=== PATIENT | female | born 2000 | race Caucasian/White ===

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

== ENCOUNTER 2022-02-10 00:33 | Inpatient (IN) | payer BC ==
[2022-02-10] MEDS ORDERED: Terbutaline 1 MG/ML SDV SUBCUT PRN (00:53)
[2022-02-10] MEDS ORDERED: Tranexamic Acid 1,000 MG in Sodium Chloride 0.9% 100 ML IV PRN (00:53)
[2022-02-10] MEDS ORDERED: Carboprost Tromethamine 250 MCG/1 ML Amp IM PRN (00:53)
[2022-02-10] MEDS ORDERED: Sodium Chloride 0.9% 10 ML Syringe FLUSH PRN (00:53)
[2022-02-10] MEDS ORDERED: Water For Irrigation,Sterile 1,000 ML Container IRR PRN (00:53)
[2022-02-10] MEDS ORDERED: Sodium Chloride 0.9% 2.5 ML Syringe FLUSH PRN (00:53)
[2022-02-10] MEDS ORDERED: Misoprostol 25 MCG (1/4 of 100 MCG) Tab VAG PRN (00:53)
[2022-02-10] MEDS ORDERED: Methylergonovine 0.2 MG/1 ML Amp IM PRN (00:53)
[2022-02-10] MEDS ORDERED: Sodium Chloride 0.9% 20 ML SDV IV PRN (00:53)
[2022-02-10] MEDS ORDERED: Misoprostol 200 MCG Tab PO PRN (00:53)
[2022-02-10] MEDS ORDERED: Lidocaine 1% 50 ML MDV INJECT PRN (00:53)
[2022-02-10] MEDS ORDERED: Butorphanol 1 MG/ML SDV IVPUSH PRN (00:53)
[2022-02-10] MEDS ORDERED: Ondansetron 4 MG/2 ML SDV IVPUSH PRN (00:53)
[2022-02-10] MEDS ORDERED: Oxytocin/0.9 % Sodium Chloride 30 UNIT/500 ML BAG IV SCH ×2 (01:00)
[2022-02-10] MEDS: Lactated Ringers 1,000 ML IV SCH ×4 (01:46→19:01)
[2022-02-10] MEDS: Misoprostol 25 MCG (1/4 of 100 MCG) Tab PO SCH ×3 (02:04→10:38)
[2022-02-10] MEDS: Misoprostol 25 MCG (1/4 of 100 MCG) Tab VAG PRN ×2 (06:10→10:39)
[2022-02-10] MEDS ORDERED: Ropivacaine 100 ML ONE (13:23)
[2022-02-10] MEDS ORDERED: ePHEDrine 50 MG/ML SDV IVPUSH PRN (14:33)
[2022-02-10] MEDS: Ropivacaine 200 MG in Premix Bag 1 BAG EPIDUR SCH (22:04)
[2022-02-11] MEDS: Lactated Ringers 1,000 ML IV SCH ×3 (03:07→16:39)
[2022-02-11] MEDS: Ropivacaine 200 MG in Premix Bag 1 BAG EPIDUR SCH (04:18)
[2022-02-11] MEDS ORDERED: ceFAZolin 1 GM Vial ONE ×2 (04:40→05:50)
[2022-02-11] MEDS ORDERED: Water For Injection, Sterile 20 ML ONE ×3 (04:40→05:50)
[2022-02-11] MEDS ORDERED: Lidocaine 2% with EPINEPHrine 1:200,000 20 ML SDV ONE (04:40)
[2022-02-11] MEDS ORDERED: Ondansetron 4 MG/2 ML SDV ONE ×2 (04:43→05:50)
[2022-02-11] MEDS ORDERED: Famotidine 20 MG/2 ML SDV IVPUSH ONE (04:54)
[2022-02-11] MEDS ORDERED: Citric Acid/Sodium Citrate Solution 30 ML Cup PO ONE (04:56)
[2022-02-11] MEDS ORDERED: Azithromycin 500 MG in Sodium Chloride 0.9% 250 ML IV ONE (05:03)
[2022-02-11] MEDS ORDERED: Azithromycin 500 MG Vial ONE (05:16)
[2022-02-11] MEDS ORDERED: Sodium Chloride 0.9% 250 ML ONE (05:17)
[2022-02-11] MEDS ORDERED: Ketorolac 30 MG/ML SDV ONE ×2 (05:18→05:50)
[2022-02-11] MEDS ORDERED: Oxytocin 10 Units/1 ML SDV ONE ×2 (05:47→05:50)
[2022-02-11] MEDS ORDERED: Dexamethasone 4 MG/ML 5 ML MDV ONE (05:50)
[2022-02-11] MEDS ORDERED: Morphine PF 10 MG/10 ML SDV ONE (06:03)
[2022-02-11] MEDS ORDERED: diphenhydrAMINE 50 MG/ML SDV ONE (06:06)
[2022-02-11] MEDS ORDERED: Ketamine HCL/NACL, ISO-OSM 50 MG/5 ML Syringe ONE (06:06)
[2022-02-11] MEDS ORDERED: Bisacodyl 10 MG Supp RECTAL PRN (06:24)
[2022-02-11] MEDS ORDERED: Ondansetron 4 MG/2 ML SDV IVPUSH PRN ×2 (06:24→10:43)
[2022-02-11] MEDS ORDERED: Acetaminophen/oxyCODONE 325-5 MG Tab PO PRN ×2 (06:24→10:43)
[2022-02-11] MEDS ORDERED: Misoprostol 200 MCG Tab RECTAL PRN (06:24)
[2022-02-11] MEDS ORDERED: Methylergonovine 0.2 MG/1 ML Amp IM PRN (06:24)
[2022-02-11] MEDS ORDERED: Oxytocin 10 Units/1 ML SDV IM PRN (06:24)
[2022-02-11] MEDS ORDERED: Tranexamic Acid 1,000 MG in Sodium Chloride 0.9% 100 ML IV PRN (06:24)
[2022-02-11] MEDS ORDERED: Lanolin 100% Cream 7 GM Tube TOP PRN (06:24)
[2022-02-11] MEDS ORDERED: diphenhydrAMINE 50 MG/ML SDV IVPUSH PRN ×2 (06:24→10:43)
[2022-02-11] MEDS ORDERED: Bupivacaine 0.25% 30 ML SDV ONE (06:50)
[2022-02-11] MEDS ORDERED: Naloxone 0.4 MG/ML SDV IVPUSH PRN (10:43)
[2022-02-11] MEDS ORDERED: Promethazine 25 MG/ML SDV IM ONE (10:44)
[2022-02-11] MEDS: Ketorolac 30 MG/ML SDV IVPUSH SCH ×3 (12:47→23:54)
[2022-02-11] MEDS: Docusate Sodium 100 MG Cap PO SCH ×2 (23:25→23:54)
[2022-02-12] MEDS: Ketorolac 30 MG/ML SDV IVPUSH SCH ×2 (06:55→12:24)
[2022-02-12] MEDS: Misoprostol 25 MCG (1/4 of 100 MCG) Tab PO SCH (09:24)
[2022-02-12] MEDS: Docusate Sodium 100 MG Cap PO SCH ×2 (09:24→21:28)
[2022-02-12] MEDS ORDERED: Ibuprofen 800 MG Tab PO PRN (18:00)
[2022-02-12] MEDS: Acetaminophen/oxyCODONE 325-5 MG Tab PO PRN (21:29)
[2022-02-13] MEDS: Acetaminophen/oxyCODONE 325-5 MG Tab PO PRN (03:00)
[2022-02-13] MEDS: Docusate Sodium 100 MG Cap PO SCH (07:59)
== END 2022-02-13 12:25 | disposition home or self-care (01) | DRG 540 ==
LOC: MW.OBCHECK 00:33 → MW.OB 00:37 → MW.OBCHECK 00:53 → MW.OB 00:53 → OBSVTOIN 02-11 05:51 → MW.OB 02-11 12:55
PROVIDERS: ADMIT Obstetrics & Gynecology; ATTEND Obstetrics & Gynecology Obstetrics
PROC: 10D00Z1 Extraction of Products of Conception, Low, Open Approach (ICD-10-PCS; principal; 2022-02-11)
DX: O61.0 Failed medical induction of labor (principal); O34.211 Maternal care for low transverse scar from previous cesarean delivery; Z3A.39 39 weeks gestation of pregnancy; Z37.0 Single live birth; O99.52 Diseases of the respiratory system complicating childbirth; Z20.822 Contact with and (suspected) exposure to COVID-19; J45.909 Unspecified asthma, uncomplicated
CPT/HCPCS: 36415; 51702; 59025; 82947; 85014; 85018; 85027; 86592; 86850; 86900; 86901; A9270-GY; J0131; J0456; J0595; J0690; J1100; J1200; J1885; J2274; J2405; J2590; J2795; J3490; J7050; J7120; U0002

== ENCOUNTER 2022-03-03 22:22 | Emergency (ER) | payer BC ==
[2022-03-03] MEDS ORDERED: Lactated Ringers 1,000 ML IV STA ×2 (23:03→23:20)
[2022-03-03] MEDS ORDERED: Ketorolac 30 MG/ML SDV IVPUSH ONE (23:08)
[2022-03-03 23:16] LABS: CARBON DIOXIDE,CO2 23.3 mmol/L (21.0-32.0); POTASSIUM,K 3.4 mmol/L (3.5-5.1)
[2022-03-03] MEDS ORDERED: Potassium Chloride 10% 20 MEQ/15 ML Soln 30 ML UD Cup PO ONE (23:20)
[2022-03-03] MEDS ORDERED: Magnesium Sulfate/Water 2 GM in Premix Bag 1 BAG IV ONE (23:20)
[2022-03-03] MEDS ORDERED: Magnesium Oxide 400 MG Tab PO ONE (23:21)
[2022-03-04] MEDS ORDERED: Lactated Ringers 1,000 ML IV STA (01:32)
[2022-03-04] MEDS ORDERED: Iopamidol 755 MG/ML 500 ML Multipack Bottle IVPUSH STA (01:36)
[2022-03-04] MEDS ORDERED: Cephalexin 500 MG Cap PO STA (02:16)
[2022-03-04] MEDS ORDERED: Azithromycin 250 MG Tab PO STA (02:16)
== END 2022-03-04 02:41 | disposition home or self-care (01) ==
LOC: MW.ED 22:22
DX: N39.0 Urinary tract infection, site not specified (principal); J18.9 Pneumonia, unspecified organism; E86.0 Dehydration; Z20.822 Contact with and (suspected) exposure to COVID-19
CPT/HCPCS: 36415; 71045; 71045-26; 71275; 71275-26; 80053; 81001; 83605; 83735; 84484; 85025; 85379; 85610; 87040; 93005; 96374; 99285-25; A9270-GY; J1885; J7120; Q9967; U0002

== ENCOUNTER 2022-06-10 03:00 | Emergency (ER) | payer SELFPAY ==
[2022-06-10] MEDS ORDERED: Sodium Chloride 0.9% 2.5 ML Syringe FLUSH PRN (03:25)
[2022-06-10] MEDS ORDERED: Sodium Chloride 0.9% 10 ML Syringe FLUSH PRN (03:25)
[2022-06-10] MEDS ORDERED: Alum Hydro/Mag Hydro/Simeth XS 15 ML, Lidocaine 2% 5 ML PO ONE ×2 (03:25)
[2022-06-10] MEDS ORDERED: Morphine 4 MG/ML VIAL IVPUSH ONE (03:42)
[2022-06-10] MEDS ORDERED: Ondansetron 4 MG/2 ML SDV IVPUSH ONE (03:42)
[2022-06-10 04:13] LABS: CARBON DIOXIDE,CO2 26.1 mmol/L (21.0-32.0); POTASSIUM,K 3.4 mmol/L (3.5-5.1)
[2022-06-10] MEDS ORDERED: Ketorolac 30 MG/ML SDV IVPUSH ONE (04:16)
[2022-06-10] MEDS ORDERED: Famotidine 20 MG/2 ML SDV IVPUSH ONE (04:20)
== END 2022-06-10 04:50 | disposition home or self-care (01) ==
LOC: MW.ED 03:00
DX: K21.9 Gastro-esophageal reflux disease without esophagitis (principal); Z79.899 Other long term (current) drug therapy
CPT/HCPCS: 36415; 71045; 80053; 83690; 84484; 85025; 85379; 93005; 96374; 96375; 99285; A9270; J1885; J2270; J2405; J3490; 93010; 99284

== ENCOUNTER 2023-07-03 16:21 | Emergency (ER) | payer SELFPAY | END 2023-07-03 17:30 | disposition left against medical advice (07) | LOC: MW.ED 16:21 | DX: Z53.21 Procedure and treatment not carried out due to patient leaving prior to being seen by health care provider (principal) ==

== ENCOUNTER 2023-07-04 13:53 | Emergency (ER) | payer SELFPAY | END 2023-07-04 15:37 | disposition home or self-care (01) | LOC: MW.ED 13:53 | DX: S05.02XA Injury of conjunctiva and corneal abrasion without foreign body, left eye, initial encounter (principal); F17.210 Nicotine dependence, cigarettes, uncomplicated; X58.XXXA Exposure to other specified factors, initial encounter | CPT/HCPCS: 99282; 99283 ==

== ENCOUNTER 2023-07-08 19:19 | Emergency (ER) | payer SELFPAY ==
[2023-07-08] MEDS ORDERED: Sodium Chloride 0.9% 2.5 ML Syringe FLUSH PRN (20:46)
[2023-07-08] MEDS ORDERED: Sodium Chloride 0.9% 1,000 ML IV ONE (20:46)
[2023-07-08] MEDS ORDERED: Sodium Chloride 0.9% 10 ML Syringe FLUSH PRN (20:46)
[2023-07-08 21:24] LABS: BASOPHILS PERCENT AUTO 0.3 % (0.0-1.5); EOSINOPHILS ABSOLUTE AUTO 0.2 K/uL (0.0-0.7); EOSINOPHILS PERCENT AUTO 1.9 % (0.0-7.0); HEMATOCRIT 40.8 % (36.0-46.0); HEMOGLOBIN 13.9 g/dL (12.0-16.0); LYMPHOCYTES ABSOLUTE AUTO 2.7 K/uL (0.6-2.4); LYMPHOCYTES PERCENT AUTO 25.1 % (16.0-40.0); MEAN CORPUSCULAR HEMOGLOBIN 30.2 pg (27.0-32.0); MEAN CORPUSCULAR HGB CONC 34.1 g/dL (31.0-37.0); MEAN CORPUSCULAR VOLUME 88.7 fL (80.0-98.0); MONOCYTES ABSOLUTE AUTO 0.9 K/uL (0.0-0.8); MONOCYTES PERCENT AUTO 8.1 % (0.0-15.0); NEUTROPHILS ABSOLUTE AUTO 6.9 K/uL (1.4-5.7); NEUTROPHILS PERCENT AUTO 64.6 % (48.0-80.0); NRBC ABSOLUTE 0 K/uL; PLATELET COUNT,PLT 321 K/uL (150-400)
[2023-07-08] MEDS ORDERED: Acetaminophen 500 MG Tab PO ONE (21:28)
[2023-07-08 21:34] LABS: INR 1.02 (0.86-1.11)
[2023-07-08 21:56] LABS: A/G RATIO 0.8 (0.9-1.6); ALBUMIN 3.8 g/dL (3.4-5.0); BILIRUBIN TOTAL 0.4 mg/dL (0.2-1.0); CALCIUM 8.7 mg/dL (8.5-10.1); CARBON DIOXIDE,CO2 27.9 mmol/L (21.0-32.0); CREATININE 0.9 mg/dL (0.6-1.0); EST CRCL DRUG DOSING (CG) 76.89 mL/min; POTASSIUM,K 3.6 mmol/L (3.5-5.1); PROTEIN TOTAL,TP 8.3 g/dL (6.4-8.2)
[2023-07-08 22:00] LABS: CORONAVIRUS COVID-19 NAA NEGATIVE (NEGATIVE); INFLUENZA A NAA NEGATIVE (NEGATIVE); INFLUENZA B NAA NEGATIVE (NEGATIVE)
== END 2023-07-08 22:31 | disposition home or self-care (01) ==
LOC: MW.ED 19:19
DX: J02.9 Acute pharyngitis, unspecified (principal); Z98.890 Other specified postprocedural states; Z20.822 Contact with and (suspected) exposure to COVID-19
CPT/HCPCS: 0240U; 36415; 80053; 85025; 85610; 87651; 96360; 99283; A9270; J3490; J7030

== ENCOUNTER 2024-05-17 23:06 | Emergency (ER) | payer SELFPAY ==
[2024-05-18] MEDS: Acetaminophen 500 MG Tab PO ONE (00:34)
[2024-05-18] MEDS: Famotidine 20 MG Tab PO ONE (00:34)
[2024-05-18 00:39] LABS: BASOPHILS ABSOLUTE AUTO 0.06 K/uL (0.00-0.20); BASOPHILS PERCENT AUTO 0.5 % (0.0-1.0); EOSINOPHILS ABSOLUTE AUTO 0.64 K/uL (0.00-0.45); EOSINOPHILS PERCENT AUTO 5.3 % (0.0-6.0); HEMATOCRIT 38.2 % (37.0-47.0); HEMOGLOBIN 13.7 g/dL (12.0-16.0); IMMATURE GRAN ABSOLUTE AUTO 0.04 K/uL (0.00-0.05); IMMATURE GRAN PERCENT AUTO 0.3 % (0.0-0.4); LYMPHOCYTES ABSOLUTE AUTO 3.05 K/uL (1.00-4.80); LYMPHOCYTES PERCENT AUTO 25.3 % (24.0-44.0); MEAN CORPUSCULAR HEMOGLOBIN 31.8 pg (28.0-32.0); MEAN CORPUSCULAR HGB CONC 35.9 g/dL (32.0-36.0); MEAN CORPUSCULAR VOLUME 88.6 fL (83.0-99.0); MEAN PLATELET VOLUME 8.9 fL (9.4-12.3); MONOCYTES PERCENT AUTO 5.8 % (0.0-8.0); NEUTROPHILS ABSOLUTE AUTO 7.56 K/uL (1.80-7.70); NEUTROPHILS PERCENT AUTO 62.8 % (41.0-71.0); PLATELET COUNT,PLT 333 K/uL (150-400); RED BLOOD CELL COUNT 4.31 M/uL (4.10-5.30); WHITE BLOOD CELL COUNT,WBC 12.05 K/uL (3.9-11.3)
[2024-05-18 01:06] LABS: A/G RATIO 1.1 (0.9-1.6); ALANINE AMINOTRANSFERASE,ALT 34 IU/L (14-63); ALBUMIN 3.7 g/dL (3.4-5.0); ALKALINE PHOSPHATASE 99 U/L (46-116); ASPARTATE AMNIOTRANSFERASE,AST 21 IU/L (15-37); BILIRUBIN TOTAL 0.4 mg/dL (0.2-1.0); BLOOD UREA NITROGEN,BUN 22 mg/dL (7.0-18.0); CALCIUM 9.5 mg/dL (8.5-10.1); CARBON DIOXIDE,CO2 26.9 mmol/L (21.0-32.0); CHLORIDE,CL 103 mmol/L (98-107); CREATININE 1.1 mg/dL (0.6-1.0); EST CRCL DRUG DOSING (CG) 62.37 mL/min; GLUCOSE RANDOM 115 mg/dL (74-106); LIPASE 42 U/L (16-77); POTASSIUM,K 3.5 mmol/L (3.5-5.1); SODIUM,NA 139 mmol/L (136-145)
[2024-05-18 01:08] LABS: ESTIMATED GFR 72 mL/min (>60)
== END 2024-05-18 01:24 | disposition home or self-care (01) ==
LOC: MW.ED 23:06
DX: R10.13 Epigastric pain (principal); Z75.8 Other problems related to medical facilities and other health care; Z79.899 Other long term (current) drug therapy
CPT/HCPCS: 36415; 80053; 83690; 84484; 85025; 99284; A9270

== ENCOUNTER 2024-05-31 03:54 | Emergency (ER) | payer SELFPAY ==
[2024-05-31] MEDS ORDERED: Sodium Chloride 0.9% 2.5 ML Syringe FLUSH PRN (03:55)
[2024-05-31] MEDS ORDERED: Sodium Chloride 0.9% 10 ML Syringe FLUSH PRN (03:55)
[2024-05-31] MEDS: Lidocaine 2% Viscous Solution 15 ML UD PO ONE (04:06)
[2024-05-31] MEDS: Aluminum Hydroxide/Magnesium Hydroxide/Simethicone XS Susp 30 ML Cup PO ONE (04:07)
[2024-05-31 04:10] LABS: BASOPHILS ABSOLUTE AUTO 0.05 K/uL (0.00-0.20); BASOPHILS PERCENT AUTO 0.4 % (0.0-1.0); EOSINOPHILS ABSOLUTE AUTO 0.57 K/uL (0.00-0.45); EOSINOPHILS PERCENT AUTO 4.9 % (0.0-6.0); HEMATOCRIT 38.5 % (37.0-47.0); HEMOGLOBIN 13.7 g/dL (12.0-16.0); IMMATURE GRAN ABSOLUTE AUTO 0.04 K/uL (0.00-0.05); IMMATURE GRAN PERCENT AUTO 0.3 % (0.0-0.4); LYMPHOCYTES ABSOLUTE AUTO 3.62 K/uL (1.00-4.80); MEAN CORPUSCULAR HEMOGLOBIN 31.3 pg (28.0-32.0); MEAN CORPUSCULAR HGB CONC 35.6 g/dL (32.0-36.0); MEAN CORPUSCULAR VOLUME 87.9 fL (83.0-99.0); MEAN PLATELET VOLUME 8.7 fL (9.4-12.3); MONOCYTES ABSOLUTE AUTO 0.55 K/uL (0.00-0.80); MONOCYTES PERCENT AUTO 4.7 % (0.0-8.0); NEUTROPHILS ABSOLUTE AUTO 6.83 K/uL (1.80-7.70); NEUTROPHILS PERCENT AUTO 58.7 % (41.0-71.0); PLATELET COUNT,PLT 344 K/uL (150-400); RED BLOOD CELL COUNT 4.38 M/uL (4.10-5.30); WHITE BLOOD CELL COUNT,WBC 11.66 K/uL (3.9-11.3)
[2024-05-31] MEDS: Ondansetron 4 MG Tab PO ONE (04:14)
[2024-05-31 04:36] LABS: A/G RATIO 1.2 (0.9-1.6); ALANINE AMINOTRANSFERASE,ALT 38 IU/L (14-63); ALKALINE PHOSPHATASE 125 U/L (46-116); ASPARTATE AMNIOTRANSFERASE,AST 21 IU/L (15-37); BILIRUBIN TOTAL 0.3 mg/dL (0.2-1.0); BLOOD UREA NITROGEN,BUN 16 mg/dL (7.0-18.0); CALCIUM 9.4 mg/dL (8.5-10.1); CARBON DIOXIDE,CO2 25.7 mmol/L (21.0-32.0); CHLORIDE,CL 101 mmol/L (98-107); EST CRCL DRUG DOSING (CG) 68.61 mL/min; GLUCOSE RANDOM 127 mg/dL (74-106); POTASSIUM,K 3.5 mmol/L (3.5-5.1); PROTEIN TOTAL,TP 7.3 g/dL (6.4-8.2); SODIUM,NA 139 mmol/L (136-145)
[2024-05-31 04:37] LABS: ESTIMATED GFR 81 mL/min (>60)
[2024-05-31] MEDS: Ketorolac 30 MG/ML SDV IM ONE (04:58)
[2024-05-31] MEDS: Acetaminophen 500 MG Tab PO ONE (05:37)
[2024-05-31] MEDS: Famotidine 20 MG Tab PO ONE (05:37)
== END 2024-05-31 06:05 | disposition home or self-care (01) ==
LOC: MW.ED 03:54
DX: K80.20 Calculus of gallbladder without cholecystitis without obstruction (principal); R07.89 Other chest pain; Z75.8 Other problems related to medical facilities and other health care
CPT/HCPCS: 36415; 71046; 76705; 80053; 83690; 84484; 84703; 85025; 93005; 96372; 99285; A9270; J1885; 93010; 99283